=== PATIENT | male | born 1965 | race Caucasian/White ===

== ENCOUNTER 2024-04-11 18:38 | Emergency (ER) | payer BC, SELFPAY ==
[2024-04-11 18:41] VITALS: BP 149/92
[2024-04-11 19:01] LABS: % Basophils 0.7 % (0-2); % Eosinophils 0.7 % (0-6); % Immature Granulocytes 0.3 % (0-0.5); % Lymphocytes 42.6 % (20.5-51.1); % Monocytes 9.6 % (1.7-9.3); % Neutrophils 46.1 % (42.2-75.2); Absolute Basophils 0.1 10^3/uL (0-0.2); Absolute Eosinophils 0.1 10^3/uL (0-0.7); Absolute Lymphocytes 3.1 10^3/uL (1.2-3.4); Absolute Monocytes 0.7 10^3/uL (0.1-0.6); Absolute Neutrophils 3.4 10^3/uL (1.4-6.5); Hematocrit 38.8 % (39.0-52.0); Hemoglobin 14.4 g/dL (13.0-18.0); Mean Corp Hgb Conc. 37.1 g/dL (33.0-37.0); Mean Corpuscular Hgb 34.2 pg (27.0-31.0); Mean Corpuscular Volume 92.2 fL (80.0-94.0); Mean Platelet Volume 9.4 fL (7.4-10.4); Nucleated Red Blood Cells % 0 % (-); Platelet Count 233 10^3/uL (130-400); Red Blood Cell Count 4.21 10^6/uL (4.70-6.10); Red Cell Dist. Width 12.1 % (11.5-14.5); White Blood Cell Count 7.3 10^3/uL (4.8-10.8)
[2024-04-11 19:22] LABS: ALT (SGPT) 25 U/L (0-50); AST (SGOT) 33 U/L (17-59); Albumin 4.7 g/dl (3.5-5.0); Alkaline Phosphatase 55 U/L (38-126); Blood Urea Nitrogen 20 mg/dl (9-20); Calcium 9.8 mg/dl (8.4-10.2); Carbon Dioxide 27 mmol/L (22-30); Chloride 102 mmol/L (98-107); Glucose 55 mg/dl (70-99); Potassium 4.1 mmol/L (3.5-5.1); Sodium 141 mmol/L (135-145); Total Bilirubin 0.6 mg/dl (0.2-1.3); Total Protein 7.2 g/dl (6.3-8.2); eGFR > 60.00
[2024-04-11 19:26] VITALS: BMI 33.1
[2024-04-11 19:30] VITALS: BP 129/83
--- NOTE | 2024-04-11 19:30 | EDRN ---
Pt had glucose of 55. Pt states he ate a lot prior to arrival.
[2024-04-11 19:34] LABS: Glucose - Point of Care 85 mg/dl (70-99)
--- NOTE | 2024-04-11 19:35 | EDRN ---
Accucheck glucose 85 at this time.
--- NOTE | 2024-04-11 19:39 | EDRN ---
David WING in room w/ pt. David WING was aware of glucose 55 though informed that accucheck was just 85.
[2024-04-11 19:41] LABS: TSH Reflex To Free T4 1.05 uIU/ml (0.47-4.68)
--- NOTE | 2024-04-11 19:49 | ED.GENMED ---
Addendum entered and electronically signed by MACIEJ Dunlap 04/11/24 23:22:
CT head normal.
Original Note:
History of Present Illness
General
Chief Complaint: Cardiac Symptoms
Source: patient
Exam Limitations: none
Time Seen by Provider: 04/11/24 19:35
History of Present Illness
History of Present Illness:
This is a 58 year old male that comes in with c/o fluttering in his chest. States that this has been happening between 10 days to 2 weeks. States that the frequency seems to be increasing. States that he felt some SOB but he had no chest pain.
States that he feel like his heart is pounding. States that this happens more when he is at rest. States that he also has a headache on the top of his head which he never gets. States that he feels lethargic. Denies any fever, chills, chest pain,
abd pain, nausea, vomiting, diarrhea, dizziness, urinary burning.
Past History
Past History
ED Past Medical History: HTN and Hypercholesterolemia
ED Past Surgical History: Orthopedic (torn Meniscus, ) and Tonsilectomy
Social History
Tobacco: Non-smoker
Alcohol: Occasional
Drug: None
Personal:
Living: with family
Employment: Employed
Family History
Family History: Hypertension
Review of Systems
Review of Systems
All Other Systems: ROS reviewed and negative except as documented in HPI and ROS
Constitutional: Reports no symptoms; Denies fever or chills
EENT: Reports no symptoms
Respiratory: Reports trouble breathing; Denies cough
Cardiac: Reports other (fluttering feelig in chest ); Denies chest pain
ABD/GI: Reports no symptoms; Denies abdominal pain, nausea, vomiting or diarrhea
: Reports no symptoms; Denies dysuria, frequency or urgency
Musculoskeletal: Reports no symptoms
Skin: Reports no symptoms
Neurological: Reports headache; Denies dizzy
Psychiatric: Reports no symptoms
Phy Exam
General Physical Exam
General Presentation: no apparent distress
General age: appears stated age
General Skin: warm and dry
General Habitus: normal
General Mental: alert
General Hydration: appears well hydrated
ENT Exam
ENT Exam: TM's normal, pharynx normal and neck supple
Eye Exam
Eye Exam: EOMI
Cardiovascular Exam
Cardiovascular Exam: regular rate/rhythm, no edema, no murmur and normal peripheral pulses
Pulmonary Exam
Pulmonary Exam: lungs clear, no respiratory distress, no rales, chest non tender, no crackles, no rhonchi, no wheezing and no cough
Gastrointestinal Exam
Gastrointestinal Exam: normal bowel sounds, non tender, soft, no organomegaly, no pulsatile mass and non distended
Musculoskeletal Exam
Musculoskeletal Exam: full ROM and no edema
Skin Exam
Skin Exam: normal color, warm/dry, no rash and no petechia
Course
Orders/Labs/Results
Orders:
Orders
04/11/24 18:43
ECG [Electrocardiogram (*1)] Urgent
Reason for Study: Palpitations
EKG- Treatment ONCE
04/11/24 18:47
Complete Blood Count/With Diff Urgent
Comprehensive Metabolic Panel Urgent
TSH Reflex To Free T4 Urgent
04/11/24 19:49
CR Chest - 2 Views Urgent
Comment:
Reason For Exam: SOB
04/11/24 19:52
CT Head W/o Iv Contrast Urgent
Comment:
Reason For Exam: headache
04/11/24 20:16
D-Dimer Urgent
Troponin I Urgent
Abnormal Lab Results
04/11/24
18:47
RBC 4.21 L 10^6/uL
(4.70-6.10)
Hct 38.8 L %
(39.0-52.0)
MCH 34.2 H pg
(27.0-31.0)
MCHC 37.1 H g/dL
(33.0-37.0)
Absolute Monos (auto) 0.7 H 10^3/uL
(0.1-0.6)
Monocytes % 9.6 H %
(1.7-9.3)
Glucose 55 L* mg/dl
(70-99)
04/11/24 18:47
04/11/24 18:47
Hypoglycemia, (repeat Glucose 85), TSH normal at 1.05, Troponin <0.012, D-dimer 0.34,
Vital Signs
Initial and Last Documented VS:
Initial Vital Signs
Temp Pulse Resp BP Pulse Ox
98.3 F 81 18 149/92 97
04/11/24 18:41 04/11/24 18:41 04/11/24 18:41 04/11/24 18:41 04/11/24 18:41
Last Documented Vital Signs
Temp Pulse Resp BP Pulse Ox
98.3 F 71 17 137/88 95
04/11/24 18:41 04/11/24 21:45 04/11/24 21:45 04/11/24 21:00 04/11/24 21:45
MDM/Problems Addressed
Differential Diagnosis Includes:
arrhythmia, Anxiety
MDM/Problems Addressed:
This is a 58 year old male that comes in with c/o feeling like his heart is fluttering. States that this happens more then he lays down. States that he has no chest pain but feels slightly SOB.
will check labs. Chest x-ray
Back into see patient. Explained that his blood work has been normal. TSH is normal along with his D-dimer and Troponin. Chest x-ray is normal. Patient to follow up with the family doctor for further evaluation. Explained that he may need to wear a
Holter monitor to see if there are any arrhythmias. Patient to return with any concerns.
Chronic conditions affecting care:
NA
Acute Exacerbation and/or Progression of Chronic Illness:
NA
*Pulse Oximetry
Patient hypoxic: no
*EKG
Interpreted by ED Provider?: Yes
Heart Rate: 75
Rate: normal
Rhythm: sinus
[place]: normal axis
Interval: normal interval
QRS Pattern: normal QRS
Ischemia: no ischemia
*[employer]per Interpretation
Rate: normal
Heart Rate: 72
Rhythm: sinus
*Critical Care Note
Total Time (30-74mins, 75-104mins- exclusive of procedures): Not Applicable
ED Attending Note
-
Portions of this chart may have been created with voice recognition software.� Occasional wrong word or��sound alike� substitutions may have occurred due to the inherent limitations of voice recognition software.
Discharge Plan
Departure
Patient Disposition: Home (Routine Discharge)
Date of Disposition: 04/11/24
Time of Disposition: 22:16
Patient with high blood pressure during this ER visit?: Yes
Condition: Good
Covid-19: Not Applicable
Discharge Problem:
SOB (shortness of breath), heart racing, feeling
Instructions: Shortness of breath, BLOOD PRESSURE
Prescriptions:
No Action
cyclobenzaprine 10 MG tablet
10 mg PO TIDPRN PRN (Reason: muscle spasm) Qty: 12 0RF
hydrocodone-acetaminophen [Vicodin] 1 EACH tablet
1 ea PO .Q4-6HPRN Qty: 12 0RF
ibuprofen 600 MG tablet
600 mg PO Q6H Qty: 30 0RF
Referrals:
Simone Ortega MD [Family Provider] - Follow up in 2-3 days
Activity Restrictions/Additional Instructions:
As discussed, your blood work is normal. Your chest x-ray is normal along with your D-dimer, TSH and Troponin. Please follow up with the family doctor for further evaluation as you may need to wear a Holter monitor for further evaluation. IF YOU
HAVE ANY CHEST PAIN, INCREASED SHORTNESS OF BREATH, OR YOU HAVE ANY OTHER CONCERNS PLEASE RETURN TO THE EMERGENCY ROOM.
Interventions
Interventions:
*Risk Screen - Suicide Last Done: 04/11/24 19:26
*General Assessment Last Done: 04/11/24 19:26
*Neglect/Abuse Screening Last Done: 04/11/24 19:26
ED- Fall Risk Assessment Last Done: 04/11/24 19:26
*ED COVID-19 Vaccine History Last Done: 04/11/24 19:26
ED- Pulmonary Assessment Last Done: 04/11/24 19:36
ED- Cardiac Assessment Last Done: 04/11/24 19:36
Discharge Date and Time
Print Language: HEBREW
[2024-04-11 20:00] VITALS: BP 127/78
[2024-04-11 20:37] LABS: D-Dimer 0.34 ug/mlFEU (0.00-0.50)
[2024-04-11 20:46] LABS: Troponin I < 0.012 ng/ml
[2024-04-11 21:00] VITALS: BP 137/88
--- NOTE | 2024-04-11 21:50 | EDRN ---
Pt stated to this RN that at 10 minutes prior to this time he had had the fluttery feeling (20:10). This RN looked back on the monitor at pt's cardiac rhythm around 20:00 and found a few PACs noted in his rhythm. Strips printed.
--- NOTE | 2024-04-11 22:44 | EDRN ---
Pt is discharged pending CT results r/t his headache that has been intermittent and 3/10 while in ER.
[2024-04-11 22:47] VITALS: BP 124/87
[2024-04-11 23:00] VITALS: BP 120/89
--- NOTE | 2024-04-11 23:10 | ED.GENMED ---
History of Present Illness
General
Chief Complaint: Cardiac Symptoms
Time Seen by Provider: 04/11/24 19:35
Past History
Past History
ED Past Medical History: HTN and Hypercholesterolemia
ED Past Surgical History: Orthopedic (torn Meniscus, ) and Tonsilectomy
Social History
Tobacco: Non-smoker
Alcohol: Occasional
Drug: None
Personal:
Living: with family
Employment: Employed
Family History
Family History: Hypertension
Course
Orders/Labs/Results
Orders:
Orders
04/11/24 18:43
ECG [Electrocardiogram (*1)] Urgent
Reason for Study: Palpitations
EKG- Treatment ONCE
04/11/24 18:47
Complete Blood Count/With Diff Urgent
Comprehensive Metabolic Panel Urgent
TSH Reflex To Free T4 Urgent
04/11/24 19:49
CR Chest - 2 Views Urgent
Comment:
Reason For Exam: SOB
04/11/24 19:52
CT Head W/o Iv Contrast Urgent
Comment:
Reason For Exam: headache
04/11/24 20:16
D-Dimer Urgent
Troponin I Urgent
Abnormal Lab Results
04/11/24
18:47
RBC 4.21 L 10^6/uL
(4.70-6.10)
Hct 38.8 L %
(39.0-52.0)
MCH 34.2 H pg
(27.0-31.0)
MCHC 37.1 H g/dL
(33.0-37.0)
Absolute Monos (auto) 0.7 H 10^3/uL
(0.1-0.6)
Monocytes % 9.6 H %
(1.7-9.3)
Glucose 55 L* mg/dl
(70-99)
04/11/24 18:47
04/11/24 18:47
Vital Signs
Initial and Last Documented VS:
Initial Vital Signs
Temp Pulse Resp BP Pulse Ox
98.3 F 81 18 149/92 97
04/11/24 18:41 04/11/24 18:41 04/11/24 18:41 04/11/24 18:41 04/11/24 18:41
Last Documented Vital Signs
Temp Pulse Resp BP Pulse Ox
98.3 F 69 15 124/87 97
04/11/24 18:41 04/11/24 22:47 04/11/24 22:47 04/11/24 22:47 04/11/24 22:47
*Radiology
Radiology exam reviewed: radiology read reviewed (CT head- No acute intracranial abnormality noted. )
ED Attending Note
-
Portions of this chart may have been created with voice recognition software.� Occasional wrong word or��sound alike� substitutions may have occurred due to the inherent limitations of voice recognition software.
Discharge Plan
Departure
Patient Disposition: Home (Routine Discharge)
Date of Disposition: 04/11/24
Time of Disposition: 22:16
Patient with high blood pressure during this ER visit?: Yes
Condition: Good
Covid-19: Not Applicable
Discharge Problem:
SOB (shortness of breath), heart racing, feeling
Instructions: Shortness of breath, BLOOD PRESSURE
Prescriptions:
No Action
cyclobenzaprine 10 MG tablet
10 mg PO TIDPRN PRN (Reason: muscle spasm) Qty: 12 0RF
hydrocodone-acetaminophen [Vicodin] 1 EACH tablet
1 ea PO .Q4-6HPRN Qty: 12 0RF
ibuprofen 600 MG tablet
600 mg PO Q6H Qty: 30 0RF
Referrals:
Simone Ortega MD [Family Provider] - Follow up in 2-3 days
Activity Restrictions/Additional Instructions:
As discussed, your blood work is normal. Your chest x-ray is normal along with your D-dimer, TSH and Troponin. Please follow up with the family doctor for further evaluation as you may need to wear a Holter monitor for further evaluation. IF YOU
HAVE ANY CHEST PAIN, INCREASED SHORTNESS OF BREATH, OR YOU HAVE ANY OTHER CONCERNS PLEASE RETURN TO THE EMERGENCY ROOM.
Interventions
Interventions:
*Risk Screen - Suicide Last Done: 04/11/24 19:26
*General Assessment Last Done: 04/11/24 19:26
*Neglect/Abuse Screening Last Done: 04/11/24 19:26
ED- Fall Risk Assessment Last Done: 04/11/24 19:26
*ED COVID-19 Vaccine History Last Done: 04/11/24 19:26
ED- Pulmonary Assessment Last Done: 04/11/24 19:36
ED- Cardiac Assessment Last Done: 04/11/24 19:36
Discharge Date and Time
Print Language: MALDIVIAN
== END 2024-04-11 23:33 | disposition home or self-care (01) ==
LOC: EMR 18:38
PROVIDERS: Clinical Nurse Specialist Family Health; Emergency Medicine; EMERGENCY PHYSICIAN Emergency Medicine; FAMILY PHYSICIAN Internal Medicine
DX: R00.0 Tachycardia, unspecified (principal); R06.02 Shortness of breath; R53.83 Other fatigue; R51.9 Headache, unspecified; I49.8 Other specified cardiac arrhythmias; E16.2 Hypoglycemia, unspecified; I10 Essential (primary) hypertension; E78.00 Pure hypercholesterolemia, unspecified; Z91.048 Other nonmedicinal substance allergy status
CPT/HCPCS: 99285; 70450; 71046; 80053; 82962; 84443; 84484; 85025; 85379; 93005

== ENCOUNTER → 2024-04-21 10:57 | Outpatient (REF) | payer BC, SELFPAY | LOC: RCS 10:57 | PROVIDERS: ATTENDING PHYSICIAN Nurse Practitioner Adult Health | DX: R00.2 Palpitations (principal) | CPT/HCPCS: 93225; 93226 ==